=== PATIENT | male | born 1985 | race Caucasian/White ===

== ENCOUNTER 2021-09-12 08:00 | Outpatient (CLI) | payer SELFPAY ==
--- NOTE | 2021-09-12 11:08 | XRAY Report ---
PROCEDURE: Elbow 3 View LT INDICATIONS: LEFT ELBOW PAIN TECHNIQUE: 3 views of the elbow were acquired. COMPARISON: None FINDINGS: Bones: There is a displaced olecranon fracture with mild posterior displacement of the proximal fragm ent. There is an approximately 1.9 cm diastases of proximal and distal fragments. No suspicious bony lesions. Soft tissues: There is a elbow joint effusion. No suspicious soft tissue calcifications. IMPRESSION: Mildly displaced olecranon fracture. Reviewed by: Shana Alegria MD on 09/12/2021 11:07 AM PDT Approved by: Shana Alegria MD on 09/12/2021 11:07 AM PDT Station ID: [id number]
== END 2021-09-12 23:59 | disposition home or self-care (01) ==
LOC: DI.S 08:00
PROVIDERS: ATTEND Physician Assistant Medical
DX: S52.022A Displaced fracture of olecranon process without intraarticular extension of left ulna, initial encounter for closed fracture (principal)